=== PATIENT | female | born 1995 | race Caucasian/White ===

== ENCOUNTER 2018-09-20 03:07 | Inpatient (IN) | payer BC ==
[2018-09-20] MEDS ORDERED: Sodium Chloride 0.9% 10 ML Syringe FLUSH PRN (04:04)
[2018-09-20] MEDS ORDERED: Oxytocin/Lactated Ringers 10 UNIT/1,000 ML BAG IV SCH (04:15)
[2018-09-20] MEDS ORDERED: Lactated Ringers 1,000 ML IV SCH (04:15)
--- NOTE | 2018-09-20 04:33 | PCM.LDHP ---
L&D History of Present Illness - General Date of Service: 09/20/18 Admit Problem/Dx: Patient Status Order with Admit Dx/Problem 09/20/18 03:22 Patient Status [ADT] Routine Admission Diagnosis/Problem Admission Diagnosis/Problem Source of Information: Patient History Limitations: Reports: No Limitations - History of Present Illness Introduction:: 0.4-year-old FREDDY 10/05/18 at estimated gestational age 37 weeks 6 days presented to labor and delivery completely dilated. Spontaneous rupture membranes had occurred but time not exactly known but estimated by palpation at around midnight. Blood type B-positive antibody screen negative on 07/11/18. On 03/17/18 hemoglobin hematocrit 14.3 and 41.6. Platelets at that time 292,000. Rubella immune. RPR nonreactive, hepatitis B surface antigen nonreactive, HIV normal, Chlamydia and GC negative on 03/17/18. On 07/11/18 hemoglobin 12.0 platelets 277,001 hour OB glucose screen 1:15 antibody screen negative On 09/05/18 group B strep nondetected. Patient admitted for delivery. Timing/Duration: Reports: hour(s): Location, : Reports: Abdomen, Lower back, Pelvic Quality: Reports: Ache, Burning, Pressure Severity: Severe Pain Score: 9 Improves with: Reports: None Worsens with: Reports: None Associated Symptoms: Reports: N - Related Data Allergies/Adverse Reactions: Allergies Allergy/AdvReac Type Severity Reaction Status Date / Time benzonate Allergy Other Uncoded 09/20/18 04:37 formaldehyde Allergy Rash Uncoded 09/20/18 04:37 Home Medications: Home Meds Acetaminophen/Butalbital/Caff [Fioricet 325-50-40 MG] 1 tab PO 09/20/18 [History ] Albuterol Sulfate [Albuterol Sulfate Hfa] 8.5 gm IH 09/20/18 [History] Budesonide/Formoterol Fumarate [Symbicort 80-4.5 Mcg Inhaler] 1 puff IH [History] Dapsone [Aczone] 30 gm TP 09/20/18 [History] PNV95/Ferrous Fumarate/FA [ Tablet] 1 each PO 09/20/18 [History] Tretinoin Microspheres [Retin-A Micro] 20 gm TP 09/20/18 [History] Past Medical History HEENT History: Reports: Other (See Below) (Acne) Respiratory History: Reports: Asthma Gastrointestinal History: Reports: Other (See Below) (Indigestion) Social & Family History - Family History Cardiac: Reports: High Cholesterol (Maternal grandmother), Hypertension ( Maternal grandmother) Respiratory: Reports: Asthma (Father) GI: Reports: Hiatal Hernia (Father) Musculoskeletal: Reports: Arthritis (Father) Neurological: Reports: Other (See Below) (Stroke paternal grandfather) Psychiatric: Reports: Other (See Below) (Alcohol abuse maternal grandfather) Endocrine/Metabolic: Reports: Diabetes, type II (Paternal grandfather) Oncologic: Reports: Bladder (Paternal grandfather) H&P Review of Systems - Review of Systems: Review Of Systems: See Below General: Reports: No Symptoms HEENT: Reports: No Symptoms Pulmonary: Reports: No Symptoms Cardiovascular: Reports: No Symptoms Gastrointestinal: Reports: No Symptoms Genitourinary: Reports: No Symptoms Musculoskeletal: Reports: No Symptoms Skin: Reports: No Symptoms Psychiatric: Reports: No Symptoms Neurological: Reports: No Symptoms Hematologic/Lymphatic: Reports: No Symptoms Immunologic: Reports: No Symptoms L&D Exam - Exam Exam: See Below - OB Specific Fundal Height In cm: 37 Contraction Duration (sec): 60 Contraction Frequency (min): 3 Contraction Intensity: Strong Movement: Active Heart Tones: Present Heart Tones per Min: 140 Heart Rate (FHR) Variability: Moderate (6-25 bmp) Presentation: Vertex - Irene Score Irene Score Cervix Position: Anterior Irene Score Consistency: Soft Irene Score Effacement: >80% Irene Score Dilation: > 5 cm Irene Score 's Station: +1, +2 Irene Score Total: 13 - Exam General: Alert, Oriented HEENT: Conjunctiva Clear, Mucosa Moist & [place] Neck: Supple, Trachea Midline Lungs: Clear to Auscultation, Normal Respiratory Effort Cardiovascular: Regular Rate, Regular Rhythm Genitourinary: Normal external exam Extremities: Normal Inspection, Normal Range of Motion, Non-Tender, No Pedal Edema, Normal Capillary Refill Skin: Warm, Dry, Intact Psychiatric: Alert, Normal Affect, Normal Mood - Problem List (1) 37 weeks gestation of SNOMED Code(s): 89279438 ICD Code: Z3A.37 - 37 WEEKS GESTATION OF Status: Acute Current Visit: Yes Problem List Initiated/Reviewed/Updated: No Orders Last 24hrs: Active Orders 24 hr Category Date Time Status Patient Status [ADT] Routine ADT 09/20/18 03:22 Active Activity as Tolerated [RC] PFP Care 09/20/18 04:04 Active Communication Order [RC] ASDIRECTED Care 09/20/18 04:04 Active Heart Tones [RC] ASDIRECTED Care 09/20/18 04:04 Active Non Stress Test [RC] PER UNIT ROUTINE Care 09/20/18 03:22 Active Non Stress Test [RC] PER UNIT ROUTINE Care 09/20/18 04:04 Active Notify Provider [RC] PFP Care 09/20/18 04:04 Active Notify Provider [RC] PRN Care 09/20/18 04:04 Active Peripheral IV Care [RC] . DIRECTED Care 09/20/18 04:04 Active Urinary Catheter Assessment [RC] ASDIRECTED Care 09/20/18 04:04 Active Vital Signs [RC] PER UNIT ROUTINE Care 09/20/18 03:22 Active Vital Signs [RC] PER UNIT ROUTINE Care 09/20/18 04:04 Active Regular Diet [DIET] Diet 09/20/18 Breakfast Active CBC WITH AUTO DIFF [HEME] Stat Lab 09/20/18 04:15 Received RAPID PLASMA REAGIN,RPR [CHEM] Routine Lab 09/20/18 04:15 Received Lactated Ringers [Ringers, Lactated] 1,000 ml Med 09/20/18 04:15 Pending IV ASDIRECTED Oxytocin/Lactated Ringers [Pitocin in LR 10 Units/1,000 Med 09/20/18 04:15 Ordered ML] 10 unit in 1,000 ml IV .CONTINUOUS Sodium Chloride 0.9% [Saline Flush] Med 09/20/18 04:04 Ordered 10 ml FLUSH ASDIRECTED PRN Electronic Heart Tones Ext w TOCO [WOMSER] Oth 09/20/18 04:04 Ordered Routine Electronic Heart Tones Internal [WOMSER] Per Unit Oth 09/20/18 04:04 Ordered Routine Peripheral IV Insertion Adult [OM.PC] Routine Oth 09/20/18 04:04 Ordered Resuscitation Status Routine Resus Stat 09/20/18 04:04 Ordered Medication Orders Lactated Ringer's (Ringers, Lactated) 1,000 mls @ 100 mls/hr IV ASDIRECTED YOGI Oxytocin/Lactated Ringer's (Pitocin In Lr 10 Units/1,000 Ml) 10 unit in 1,000 mls @ 500 mls/hr IV .CONTINUOUS YOGI Sodium Chloride (Saline Flush) 10 ml FLUSH ASDIRECTED PRN PRN Reason: Keep Vein Open Assessment/Plan Comment:: Plan delivery
[2018-09-20] MEDS ORDERED: Lidocaine 1% 50 ML MDV ONE (04:44)
[2018-09-20] MEDS ORDERED: Nalbuphine 10 MG/1 ML Vial IVPUSH PRN (04:58)
--- NOTE | 2018-09-20 06:40 | PCM.SN ---
- Free Text/Narrative Note: At 0615 pushing at +2 station. Cat I FHR.
--- NOTE | 2018-09-20 08:26 | PCM.SN ---
- Free Text/Narrative Note: Stage I - Patient presented in active labor completely dilated. Stage II - of viable male, weight 7#10oz, APGARS 8/9 at 0729. Vacuum applied after about 3 hours of pushing at maternal request. bladder emptied prior to placement. Over 3 contractions with good maternal effort head descended to . Vacuum removed. Delivery occurred with one push. Body and shoulders followed without difficulty. Stage III - of intact placenta. 3vc. 3rd degree laceration repaired with 2-0 , 3-0 and 4-0 vicryl. EBL 300.
[2018-09-20] MEDS ORDERED: Lanolin 100% Cream 7 GM Tube TOP PRN (09:06)
[2018-09-20] MEDS ORDERED: Benzocaine/Menthol 20%-0.5% Spray 56 GM Canister TOP PRN (09:06)
[2018-09-20] MEDS: Witch Hazel Medicated Pads 40/Jar TOP PRN (10:06)
[2018-09-20] MEDS: Docusate Sodium 100 MG Cap PO PRN ×2 (10:07→21:05)
[2018-09-20] MEDS: Ibuprofen 600 MG Tab PO PRN ×2 (11:02→22:36)
--- NOTE | 2018-09-21 07:55 | PCM.PNPP ---
- General Info Date of Service: 09/21/18 Functional Status: Reports: Pain Controlled - Review of Systems General: Reports: No Symptoms HEENT: Reports: No Symptoms Pulmonary: Reports: No Symptoms Cardiovascular: Reports: No Symptoms Gastrointestinal: Reports: No Symptoms Genitourinary: Reports: No Symptoms Musculoskeletal: Reports: No Symptoms Skin: Reports: No Symptoms Neurological: Reports: No Symptoms Psychiatric: Reports: No Symptoms - General Info Date of Service: 09/21/18 - Patient Data Vital Signs - Most Recent: Last Vital Signs Temp 36.9 C 09/21/18 02:27 Pulse 94 09/21/18 02:27 Resp 14 09/21/18 02:27 BP 117/70 09/21/18 02:27 Pulse Ox 96 09/21/18 02:27 I&O - Last 24 Hours: Intake & Output 09/20/18 09/21/18 09/21/18 22:59 06:59 14:59 Intake Total 2180 Balance 2180 Lab Results - Last 24 Hours: Laboratory Results - last 24 hr 09/20/18 Range/Units 04:15 RPR Non-reactive (NONREACTIVE) Med Orders - Current: Current Medications Benzocaine/Menthol (Dermoplast Pain Relief [place]) 0 gm TOP ASDIRECTED PRN PRN Reason: Perineal Comfort Measure Last Admin: 09/20/18 10:07 Dose: 1 can Docusate Sodium (Colace) 100 mg PO BID PRN PRN Reason: Constipation Last Admin: 09/20/18 21:05 Dose: 100 mg Emollient Ointment (Lansinoh Hpa) 0 gm TOP ASDIRECTED PRN PRN Reason: Sore Nipples Last Admin: 09/20/18 22:38 Dose: 1 tube Ibuprofen (Motrin) 600 mg PO Q6H PRN PRN Reason: Mild pain or fever Last Admin: 09/20/18 22:36 Dose: 600 mg Witch Afshan (Tucks) 1 pad TOP ASDIRECTED PRN PRN Reason: Pain Last Admin: 09/20/18 10:06 Dose: 1 tub Discontinued Medications Lactated Ringer's (Ringers, Lactated) 1,000 mls @ 100 mls/hr IV ASDIRECTED YOGI Last Admin: 09/20/18 05:15 Dose: 100 mls/hr Oxytocin/Lactated Ringer's (Pitocin In Lr 10 Units/1,000 Ml) 10 unit in 1,000 mls @ 500 mls/hr IV .CONTINUOUS YOGI Last Admin: 09/20/18 07:31 Dose: 500 mls/hr Lidocaine HCl (Xylocaine 1%) Confirm Administered Dose 50 ml .ROUTE .STK-MED ONE Stop: 09/20/18 04:45 Last Admin: 09/20/18 08:06 Dose: 50 ml Nalbuphine HCl (Nubain) 10 mg IVPUSH Q2H PRN PRN Reason: Pain Last Admin: 09/20/18 05:09 Dose: 10 mg Sodium Chloride (Saline Flush) 10 ml FLUSH ASDIRECTED PRN PRN Reason: Keep Vein Open - Interaction Disposition, : [place] to Nursery Support Person: - Recovery Exam Fundal Tone: Firm Fundal Level: 1 Fingerbreadths Below Umbilicus Fundal Placement: Midline Lochia Amount: Small Lochia Color: Rubra/Red Perineum Description: Other (see below) Other Perinuem Description: 3rd deg laceration with repair Episiotomy/Laceration: Approximated Bladder Status: Voiding Urinary Elimination: Voided - Exam General: Alert, Oriented HEENT: Pupils Equal Neck: Supple Lungs: Clear to Auscultation, Normal Respiratory Effort Cardiovascular: Regular Rate, Regular Rhythm GI/Abdominal Exam: Normal Bowel Sounds, Soft, Non-Tender, No Organomegaly, No Distention, No Abnormal Bruit, No Mass, Pelvis Stable Extremities: Normal Inspection, Normal Range of Motion, Non-Tender, No Pedal Edema, Normal Capillary Refill Skin: Warm, Dry, Intact Wound/Incisions: Healing Well Neurological: No New Focal Deficit Psy/Mental Status: Alert, Normal Affect, Normal Mood - Problem List Review Problem List Initiated/Reviewed/Updated: Yes - My Orders Last 24 Hours: My Active Orders 09/20/18 09:06 Activity as Tolerated [RC] PER UNIT ROUTINE Vital Signs [RC] 09,15,21,03 Benzocaine/Menthol [Dermoplast Pain Relief [place]] See Dose Instructions TOP ASDIRECTED PRN Docusate Sodium [Colace] 100 mg PO BID PRN Ibuprofen [Motrin] 600 mg PO Q6H PRN Lanolin [Lansinoh HPA] See Dose Instructions TOP ASDIRECTED PRN Witch Afshan [Tucks] 1 pad TOP ASDIRECTED PRN Assess Lochia [WOMSER] Per Unit Routine Assess Uterine Involution [WOMSER] Per Unit Routine Breast Pump [WOMSER] Per Unit Routine Heat Therapy [OM.PC] PRN Medication Administration Instruction [OM.PC] Routine Perineal Care [OM.PC] Per Unit Routine Sitz Bath [OM.PC] Per Unit Routine 09/20/18 Lunch Regular Diet [DIET] 09/21/18 09:06 Heat Therapy [OM.PC] PRN - Assessment Assessment:: PPD 1 - Plan Plan:: Doing great. No issues. No complaints. Sore but otherwise minimal bleeding. Likely home tomorrow
[2018-09-21] MEDS: Ibuprofen 600 MG Tab PO PRN (08:03)
[2018-09-21] MEDS: Docusate Sodium 100 MG Cap PO PRN (21:32)
[2018-09-21] MEDS: Witch Hazel Medicated Pads 40/Jar TOP PRN (21:32)
[2018-09-22] MEDS ORDERED: Acetaminophen 325 MG Tab PO PRN (02:48)
[2018-09-22] MEDS: Ibuprofen 600 MG Tab PO PRN (02:50)
--- NOTE | 2018-09-22 08:09 | PCM.DCSUM1 ---
Discharge Summary - Hospital Course Diagnosis: Stroke: No - Discharge Data Discharge Date: 09/22/18 Discharge Disposition: Home, Self-Care 01 Condition: Good - Patient Instructions Diet: Usual Diet as Tolerated Activity: No Strenuous Activities Driving: May Drive Today Showering/Bathing: May Shower Notify Provider of: Fever, Increased Pain, Swelling and Redness, Drainage, Nausea and/or Vomiting - Discharge Plan *PRESCRIPTION DRUG MONITORING PROGRAM REVIEWED*: No *COPY OF PRESCRIPTION DRUG MONITORING REPORT IN PATIENT [place]: No Home Medications: Home Meds Acetaminophen/Butalbital/Caff [Fioricet 325-50-40 MG] 1 tab PO 09/20/18 [History ] Albuterol Sulfate [Albuterol Sulfate Hfa] 8.5 gm IH 09/20/18 [History] Budesonide/Formoterol Fumarate [Symbicort 80-4.5 Mcg Inhaler] 1 puff IH [History] Dapsone [Aczone] 30 gm TP 09/20/18 [History] PNV95/Ferrous Fumarate/FA [ Tablet] 1 each PO 09/20/18 [History] Tretinoin Microspheres [Retin-A Micro] 20 gm TP 09/20/18 [History] Patient Handouts: Home Care Instructions for Mom Referrals: Araseli Land MD [Physician] - (4 week) - Discharge Summary/Plan Comment DC Time >30 min.: No - General Info Date of Service: 09/22/18 Functional Status: Reports: Pain Controlled - Review of Systems General: Reports: No Symptoms HEENT: Reports: No Symptoms Pulmonary: Reports: No Symptoms Cardiovascular: Reports: No Symptoms Gastrointestinal: Reports: No Symptoms Genitourinary: Reports: No Symptoms Musculoskeletal: Reports: No Symptoms Skin: Reports: No Symptoms Neurological: Reports: No Symptoms Psychiatric: Reports: No Symptoms - Patient Data Vitals - Most Recent: Last Vital Signs Temp 36.9 C 09/22/18 07:48 Pulse 67 09/22/18 07:48 Resp 16 09/22/18 07:48 BP 113/76 09/22/18 07:48 Pulse Ox 98 09/22/18 07:48 Weight - Most Recent: 92.986 kg I&O - Last 24 hours: Intake & Output 09/21/18 09/22/18 09/22/18 22:59 06:59 14:59 Intake Total 660 Balance 660 Med Orders - Current: Current Medications Acetaminophen (Tylenol) 650 mg PO Q4H PRN PRN Reason: pain Last Admin: 09/22/18 02:55 Dose: 650 mg Benzocaine/Menthol (Dermoplast Pain Relief [place]) 0 gm TOP ASDIRECTED PRN PRN Reason: Perineal Comfort Measure Last Admin: 09/20/18 10:07 Dose: 1 can Docusate Sodium (Colace) 100 mg PO BID PRN PRN Reason: Constipation Last Admin: 09/21/18 21:32 Dose: 100 mg Emollient Ointment (Lansinoh Hpa) 0 gm TOP ASDIRECTED PRN PRN Reason: Sore Nipples Last Admin: 09/20/18 22:38 Dose: 1 tube Ibuprofen (Motrin) 600 mg PO Q6H PRN PRN Reason: Mild pain or fever Last Admin: 09/22/18 02:50 Dose: 600 mg Witch Afshan (Tucks) 1 pad TOP ASDIRECTED PRN PRN Reason: Pain Last Admin: 09/21/18 21:32 Dose: 1 tub Discontinued Medications Lactated Ringer's (Ringers, Lactated) 1,000 mls @ 100 mls/hr IV ASDIRECTED YOGI Last Admin: 09/20/18 05:15 Dose: 100 mls/hr Oxytocin/Lactated Ringer's (Pitocin In Lr 10 Units/1,000 Ml) 10 unit in 1,000 mls @ 500 mls/hr IV .CONTINUOUS YOGI Last Admin: 09/20/18 07:31 Dose: 500 mls/hr Lidocaine HCl (Xylocaine 1%) Confirm Administered Dose 50 ml .ROUTE .STK-MED ONE Stop: 09/20/18 04:45 Last Admin: 09/20/18 08:06 Dose: 50 ml Nalbuphine HCl (Nubain) 10 mg IVPUSH Q2H PRN PRN Reason: Pain Last Admin: 09/20/18 05:09 Dose: 10 mg Sodium Chloride (Saline Flush) 10 ml FLUSH ASDIRECTED PRN PRN Reason: Keep Vein Open - Exam General: Reports: Alert, Oriented HEENT: Reports: Pupils Equal, Pupils Reactive, EOMI, Mucous Membr. Moist/[place] Neck: Reports: Supple Lungs: Reports: Clear to Auscultation, Normal Respiratory Effort Cardiovascular: Reports: Regular Rate, Regular Rhythm GI/Abdominal Exam: Normal Bowel Sounds, Soft, Non-Tender, No Organomegaly, No Distention, No Abnormal Bruit, No Mass, Pelvis Stable Rectal (Female) Exam: Normal Exam, Normal Rectal Tone Back Exam: Reports: Normal Inspection, Full Range of Motion Extremities: Normal Inspection, Normal Range of Motion, Non-Tender, No Pedal Edema, Normal Capillary Refill Skin: Reports: Warm, Dry, Intact Wound/Incisions: Reports: Healing Well Neurological: Reports: No New Focal Deficit Psy/Mental Status: Reports: Alert, Normal Affect, Normal Mood
== END 2018-09-22 10:40 | disposition home or self-care (01) | DRG 542 ==
LOC: JD.OB 03:07 → JD.OBCHECK 03:07 → JD.OB 03:22 → OBSVTOIN 07:29 → JD.OB 07:30
PROVIDERS: ADMIT Obstetrics & Gynecology; ATTEND Obstetrics & Gynecology
PROC: 10D07Z6 Extraction of Products of Conception, Vacuum, Via Natural or Artificial Opening (ICD-10-PCS; principal; 2018-09-20)
PROC: 0DQR0ZZ Repair Anal Sphincter, Open Approach (ICD-10-PCS; 2018-09-20)
DX: O34.33 Maternal care for cervical incompetence, third trimester (principal); Z37.0 Single live birth; Z3A.37 37 weeks gestation of pregnancy; O70.20 Third degree perineal laceration during delivery, unspecified; Z88.8 Allergy status to other drugs, medicaments and biological substances
CPT/HCPCS: 36415; 59025; 59409; 85025; 86592; A9270-GY; J2001; J2300; J2590; J7120

== ENCOUNTER 2021-01-12 21:45 | Emergency (ER) | payer BC ==
[2021-01-12] MEDS ORDERED: Ondansetron 4 MG Tab.DIS PO ONE (22:58)
--- NOTE | 2021-01-12 23:06 | EDM.PDOC ---
ED HPI GENERAL MEDICAL PROBLEM - General Chief Complaint: Gastrointestinal Problem Stated Complaint: VOMITING/NAUSEA/DIARRHEA Time Seen by Provider: 01/12/21 22:45 Source of Information: Reports: Patient History Limitations: Reports: No Limitations - History of Present Illness INITIAL COMMENTS - FREE TEXT/NARRATIVE: Patient is a 26-year-old female presenting to the emergency room with a chief complaint of vomiting and syncope. Patient states she was doing strenuous work outside all day today and did not drink much. This evening, she developed vomiting and had several episodes of diarrhea. No blood in the vomit or diarrhea. She states she had 2 syncopal episodes which were not preceded by chest pain, palpitations. She did note she was feeling lightheaded at the time. She woke up on the ground. Denies any loss of bowel or bladder incontinence. No tongue biting. No prior history of syncope. Patient otherwise denies cough, sore throat, lower extremity swelling, , vaginal bleeding, recent travel. - Related Data Allergies Allergy/AdvReac Type Severity Reaction Status Date / Time benzonatate Allergy Other Verified 01/12/21 22:13 formaldehyde Allergy Rash Verified 01/12/21 22:13 Home Meds: Home Meds norgestimate-ethinyl estradioL [[place] 28 Tablet] 1 tab PO DAILY 01/12/21 [History] Ondansetron [Zofran ODT] 4 mg PO Q6H PRN #12 tab.dis 01/13/21 [Rx] Past Medical History - Past Health History Medical/Surgical History: Denies Medical/Surgical History HEENT History: Reports: Other (See Below) Respiratory History: Reports: Asthma Other Respiratory History: states she has an inhaler but is not sure the last time she used it. 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 - Infectious Disease History Infectious Disease History: Reports: Chicken Pox - Past Surgical History Other HEENT Surgeries/Procedures: wears glasses GI Surgical History: Reports: Appendectomy Social & Family History - Family History Family Medical History: No Pertinent Family History Cardiac: Reports: High Cholesterol, Hypertension Respiratory: Reports: Asthma GI: Reports: Hiatal Hernia Musculoskeletal: Reports: Arthritis Neurological: Reports: Other (See Below) Psychiatric: Reports: Other (See Below) Endocrine/Metabolic: Reports: Diabetes, type II Oncologic: Reports: Bladder - Tobacco Use Tobacco Use Status *Q: Never Tobacco User Second Hand Smoke Exposure: No - Caffeine Use Caffeine Use: Reports: Coffee - Recreational Drug Use Recreational Drug Use: No ED ROS GENERAL - Review of Systems Review Of Systems: See Below Free Text/Narrative/Comment: In addition to that documented in the HPI above, the additional ROS was obtained: Constitutional: Denies fevers or chills Eyes: Denies vision changes ENMT: Denies sore throat CV: Denies chest pain Resp: Denies SOB GI: Per HPI : Denies painful urination MSK: Denies recent trauma Skin: Denies new rashes Neuro: Denies new numbness or tingling or weakness Endocrine: Denies unexpected weight loss Heme: Denies bleeding disorders ED EXAM, GI/ABD - Physical Exam Exam: See Below Text/Narrative:: I have reviewed the triage vital signs Const: Well nourished, well developed, appears stated age Eyes: Pupils Equal and reactive to light bilaterally, no conjunctival injection HENT: No signs of trauma or swelling, Neck supple without meningismus CV: Regular Rate Rhythm, Warm, well-perfused extremities RESP: Unlabored respiratory effort GI: soft, non-tender, non-distended, no masses MSK: No gross deformities appreciated Skin: Warm, dry. No rashes Neuro: Alert, anchorman II-XII grossly intact. Sensation and motor function of extremities grossly intact. Psych: Appropriate mood and affect. #1 Interpretation EKG Date: 01/12/21 Time: 23:17 Rhythm: NSR Rate (Beats/Min): [address] [place]: Normal P-Wave: Present QRS: Normal ST-T: Normal QT: Normal Comparison: NA - No Prior EKG EKG Interpretation Comments: normal Course - Vital Signs Last Recorded V/S: Last Vital Signs Temp 37.5 C 01/12/21 22:12 Pulse 93 01/12/21 22:12 Resp 20 01/12/21 22:12 BP 111/54 L 01/12/21 22:12 Pulse Ox 100 01/12/21 22:12 - Orders/Labs/Meds Labs: Laboratory Tests 01/12/21 01/12/21 01/12/21 Range/Units 22:15 22:49 22:49 WBC 6.25 (3.98-10.04) K/mm3 RBC 5.16 (3.98-5.22) M/mm3 Hgb 15.9 H D (11.2-15.7) gm/dl Hct 47.0 H (34.1-44.9) % MCV 91.1 D (79.4-94.8) fl MCH 30.8 (25.6-32.2) pg MCHC 33.8 (32.2-35.5) g/dl RDW Std Deviation 42.3 (36.4-46.3) fL Plt Count 222 (182-369) K/mm3 MPV 9.6 (9.4-12.3) fl Neut % (Auto) 85.2 H (34.0-71.1) % Lymph % (Auto) 5.0 L (19.3-51.7) % [place] % (Auto) 9.1 (4.7-12.5) % Eos % (Auto) 0.3 L (0.7-5.8) Baso % (Auto) 0.2 (0.1-1.2) % Neut # (Auto) 5.33 (1.56-6.13) K/mm3 Lymph # (Auto) 0.31 L (1.18-3.74) K/mm3 [place] # (Auto) 0.57 H (0.24-0.36) K/mm3 Eos # (Auto) 0.02 L (0.04-0.36) K/mm3 Baso # (Auto) 0.01 (0.01-0.08) K/mm3 Sodium 139 (136-145) mEq/L Potassium 3.7 (3.5-5.1) mEq/L Chloride 104 (98-107) mEq/L Carbon Dioxide 27 (21-32) mEq/L Anion Gap 11.7 (5-15) BUN 16 (7-18) mg/dL Creatinine 1.0 (0.55-1.02) mg/dL Est Cr Clr Drug Dosing 69.90 mL/min Estimated GFR (MDRD) > 60 (>60) mL/min BUN/Creatinine Ratio 16.0 (14-18) Glucose 133 H (70-99) mg/dL Calcium 8.6 (8.5-10.1) mg/dL Total Bilirubin 0.9 (0.2-1.0) mg/dL AST 20 (15-37) U/L ALT 33 (14-59) U/L Alkaline Phosphatase 48 (46-116) U/L Total Protein 6.9 (6.4-8.2) g/dl Albumin 3.9 (3.4-5.0) g/dl Globulin 3.0 gm/dL Albumin/Globulin Ratio 1.3 (1-2) SARS-CoV-2 RNA (LACI) Negative (NEGATIVE) Meds: Medications Discontinued Medications Generic Name Dose Route Start Last Admin Trade Name Freq PRN Reason Stop Dose Admin Ondansetron HCl 8 mg 01/12/21 22:58 01/12/21 23:46 Ondansetron 4 Mg Tab.Dis PO 01/12/21 22:59 8 mg ONETIME ONE Administration Departure - Departure Time of Disposition: 00:06 Disposition: Home, Self-Care 01 Clinical Impression: Syncope, Dehydration - Discharge Information Prescriptions: Ondansetron [Zofran ODT] 4 mg PO Q6H PRN #12 tab.dis PRN Reason: Vomiting Instructions: Syncope Referrals: PCP,None [Primary Care Provider] - Forms: ED Department Discharge Sepsis Event Note (ED) - Focused Exam Vital Signs: Vital Signs Temp Pulse Resp BP Pulse Ox 01/12/21 22:12 37.5 C 93 20 111/54 L 100 - Assessment/Plan Assessment:: Patient 26-year-old female presented to the emergency room status post syncopal episode. Patient had no evidence of seizure activity based on her history or exam. Laboratory studies performed not demonstrate any severe anemia, electrolyte abnormality or other significant findings. EKG does not show any signs of ischemic changes or arrhythmias. History is suspicious for orthostatic given vomiting, diarrhea and strenuous activity. History or clinical evaluation is not suspicious for ruptured ectopic or pulmonary embolism. Patient demonstrates normal vital signs in the emergency room. Tolerating p.o. Was offered IV fluids but refused at this time. Return precautions were discussed as usual. Patient instructed to follow-up with primary care in the next 2 to 3 days. All questions were addressed and answered. Patient agrees with plan of care.
== END 2021-01-13 00:40 | disposition home or self-care (01) ==
LOC: JD.ED 21:45
DX: E86.0 Dehydration (principal); R55 Syncope and collapse; J45.909 Unspecified asthma, uncomplicated; Z79.899 Other long term (current) drug therapy; Z88.8 Allergy status to other drugs, medicaments and biological substances; Z20.822 Contact with and (suspected) exposure to COVID-19
CPT/HCPCS: 36415; 80053; 85025; 87635; 87804; 93005; 99284; A9270; U0002

== ENCOUNTER 2021-09-12 17:39 | Emergency (ER) | payer BC ==
[2021-09-12] MEDS ORDERED: Sodium Chloride 0.9% 10 ML Syringe FLUSH PRN (18:01)
[2021-09-12 18:59] LABS: ESTIMATED GFR > 60 mL/min (>60)
== END 2021-09-12 19:44 | disposition home or self-care (01) ==
LOC: JD.ED 17:39
DX: O99.891 Other specified diseases and conditions complicating pregnancy (principal); R00.2 Palpitations; R06.02 Shortness of breath; Z3A.32 32 weeks gestation of pregnancy; Z88.8 Allergy status to other drugs, medicaments and biological substances
CPT/HCPCS: 36415; 80053; 83735; 84443; 84484; 85025; 85379; 93005; 99285; J3490; 93010; 99284

== ENCOUNTER 2021-10-10 17:27 | Inpatient (IN) | payer BC ==
[~2021-10-10 17:27] MED LIST: Bupivacaine 0.25% 10 ML SDV ONE
[2021-10-10] MEDS ORDERED: Sodium Chloride 0.9% 10 ML Syringe FLUSH PRN (18:16)
[2021-10-10] MEDS ORDERED: Lidocaine 1% 50 ML MDV INJECT PRN (18:16)
[2021-10-10] MEDS ORDERED: Nalbuphine HCl 10 MG/ 1ML Amp IVPUSH PRN (18:16)
[2021-10-10] MEDS ORDERED: Oxytocin/Lactated Ringers 10 UNIT/1,000 ML BAG IV SCH ×2 (18:30→22:31)
[2021-10-10] MEDS ORDERED: fentaNYL 100 MCG/2 ML SDV EPIDUR PRN (19:05)
[2021-10-10] MEDS ORDERED: Bupivacaine/fentaNYL/NS 100 ML Bag EPIDUR PRN (19:05)
[2021-10-10] MEDS ORDERED: ePHEDrine 50 MG/ML SDV IVPUSH PRN (19:05)
[2021-10-10] MEDS ORDERED: diphenhydrAMINE 50 MG/ML SDV IVPUSH PRN (19:05)
[2021-10-10] MEDS: Lactated Ringers 1,000 ML IV SCH ×2 (19:07→19:41)
[2021-10-10] MEDS ORDERED: Sodium Chloride 0.9% 10 ML Syringe FLUSH SCH (21:00)
[2021-10-10] MEDS ORDERED: Misoprostol 100 MCG Tab RECTAL ONE (21:53)
[2021-10-10] MEDS: Misoprostol 200 MCG Tab ONE ×2 (21:57→22:13)
[2021-10-10] MEDS ORDERED: Methylergonovine 0.2 MG/1 ML Amp IM ONE (22:08)
[2021-10-10] MEDS ORDERED: Misoprostol 200 MCG Tab RECTAL ONE (22:14)
[2021-10-10] MEDS ORDERED: Benzocaine/Menthol 20%-0.5% Spray 78 GM Cannister TOP PRN (22:31)
[2021-10-10] MEDS ORDERED: Hydrocortisone Acetate 25 MG Supp RECTAL PRN (22:31)
[2021-10-10] MEDS ORDERED: Witch Hazel Medicated Pads 40/Jar TOP PRN (22:31)
[2021-10-10] MEDS ORDERED: Magnesium Hydroxide 400 MG/5 ML Susp 30 ML Cup PO PRN (22:31)
[2021-10-11] MEDS: Ibuprofen 600 MG Tab PO PRN ×2 (01:23→16:05)
[2021-10-11] MEDS: Nitrofurantoin Monohydrate/Macrocrystalline 100 MG Cap PO SCH ×3 (02:15→21:09)
[2021-10-11] MEDS: Acetaminophen 325 MG Tab PO PRN ×3 (06:41→19:26)
[2021-10-11] MEDS: Docusate Sodium 100 MG Cap PO PRN ×2 (08:06→19:27)
[2021-10-11] MEDS ORDERED: Prenatal Multivitamin with Calcium/Folic Acid/Iron Tab PO SCH (09:00)
== END 2021-10-11 21:19 | disposition home or self-care (01) | DRG 560 ==
LOC: JD.OBCHECK 17:27 → JD.OB 17:30 → JD.OBCHECK 18:30 → OBSVTOIN 22:26 → JD.OB 10-11 14:08
PROVIDERS: ADMIT Obstetrics & Gynecology; ATTEND Obstetrics & Gynecology
PROC: 10E0XZZ Delivery of Products of Conception, External Approach (ICD-10-PCS; principal; 2021-10-10)
PROC: 0KQM0ZZ Repair Perineum Muscle, Open Approach (ICD-10-PCS; 2021-10-10)
PROC: 3E0R3BZ Introduction of Anesthetic Agent into Spinal Canal, Percutaneous Approach (ICD-10-PCS; 2021-10-10)
PROC: 00HU33Z Insertion of Infusion Device into Spinal Canal, Percutaneous Approach (ICD-10-PCS; 2021-10-10)
PROC: 10907ZC Drainage of Amniotic Fluid, Therapeutic from Products of Conception, Via Natural or Artificial Opening (ICD-10-PCS; 2021-10-10)
DX: O60.14X0 Preterm labor third trimester with preterm delivery third trimester, not applicable or unspecified (principal); Z3A.36 36 weeks gestation of pregnancy; Z37.0 Single live birth; O75.3 Other infection during labor; N39.0 Urinary tract infection, site not specified; O69.81X0 Labor and delivery complicated by cord around neck, without compression, not applicable or unspecified; O70.1 Second degree perineal laceration during delivery; O99.52 Diseases of the respiratory system complicating childbirth; J45.909 Unspecified asthma, uncomplicated
CPT/HCPCS: 36415; 51701; 59025; 59409; 85025; 86592; A9270-GY; J2210; J2590; J3010; J3490; J7120

== ENCOUNTER 2024-03-29 03:51 | Emergency (ER) | payer OTHER ==
[2024-03-29] MEDS ORDERED: Sodium Chloride 0.9% 10 ML Syringe FLUSH PRN (04:13)
[2024-03-29] MEDS: Ketorolac 15 MG/ML SDV IVPUSH ONE (04:27)
[2024-03-29] MEDS: Sodium Chloride 0.9% 1,000 ML IV ONE (04:27)
[2024-03-29 04:32] LABS: BASOPHILS PERCENT AUTO 0.1 % (0.0-1.0); EOSINOPHILS ABSOLUTE AUTO 0.1 K/mm3 (0.0-0.4); EOSINOPHILS PERCENT AUTO 0.7 % (0.0-6.0); HEMATOCRIT 40.3 % (37.0-47.0); HEMOGLOBIN 14.2 gm/dl (12.0-16.0); IMMATURE GRAN ABSOLUTE AUTO 0.03 K/mm3 (0.00-0.05); IMMATURE GRAN PERCENT AUTO 0.3 % (0.0-0.4); LYMPHOCYTES ABSOLUTE AUTO 0.8 K/mm3 (1.0-4.8); LYMPHOCYTES PERCENT AUTO 7.4 % (24.0-44.0); MEAN CORPUSCULAR HEMOGLOBIN 30.7 pg (28.0-32.0); MEAN CORPUSCULAR HGB CONC 35.2 g/dl (32.0-36.0); MEAN CORPUSCULAR VOLUME 87.2 fl (83.0-99.0); MEAN PLATELET VOLUME 9.6 fl (9.4-12.3); MONOCYTES PERCENT AUTO 9.5 % (0.0-8.0); NEUTROPHILS ABSOLUTE AUTO 8.8 K/mm3 (1.8-7.7); PLATELET COUNT,PLT 208 K/mm3 (150-400); RED BLOOD CELL COUNT 4.62 M/mm3 (4.10-5.30); WHITE BLOOD CELL COUNT,WBC 10.72 K/mm3 (3.9-11.3)
[2024-03-29 04:42] LABS: APPEARANCE,URINE CLEAR (Clear); BILIRUBIN,URINE NEGATIVE (Negative); COLOR,URINE YELLOW (Yellow); GLUCOSE,URINE NEGATIVE (Negative); KETONES,URINE NEGATIVE (Negative); LEUKOCYTE ESTERASE,URINE 1+ (Negative); NITRITE,URINE POSITIVE (Negative); OCCULT BLOOD,URINE NEGATIVE (Negative); PH,URINE 6.5 (5.0-8.0); PROTEIN,URINE TRACE (Negative); UROBILINOGEN,URINE 0.2 (0.2-1.0)
[2024-03-29 04:55] LABS: A/G RATIO 0.9 (1-2); ALBUMIN 3.4 g/dl (3.4-5.0); ANION GAP 15.8 (5-15); BILIRUBIN TOTAL 0.5 mg/dL (0.2-1.0); CALCIUM 8.3 mg/dL (8.5-10.1); EST CRCL DRUG DOSING (CG) 68.05 mL/min; PROTEIN TOTAL,TP 7.1 g/dl (6.4-8.2)
[2024-03-29 05:00] LABS: LACTIC ACID 0.6 mmol/L (0.4-2.0)
[2024-03-29 05:01] LABS: POTASSIUM,K 3.8 mEq/L (3.5-5.1)
[2024-03-29 05:07] LABS: BACTERIA,URINE MODERATE /hpf (FEW); RBC,URINE 0-5 /hpf (0-5); SQUAMOUS EPITHELIAL CELLS,UR 0-5 /hpf (0-5)
[2024-03-29 05:08] LABS: MUCUS,URINE FEW /hpf (FEW)
[2024-03-29] MEDS ORDERED: cefTRIAXone 1 GM in Sodium Chloride 0.9% 50 ML IV ONE (05:21)
[2024-03-29] MEDS: Iopamidol 612 MG/ML 100 ML Bottle IVPUSH ONE (05:33)
[2024-03-29] MEDS: cefTRIAXone 1 GM Vial IVPUSH ONE (05:44)
== END 2024-03-29 07:36 | disposition home or self-care (01) ==
LOC: JD.ED 03:51
DX: N12 Tubulo-interstitial nephritis, not specified as acute or chronic (principal); E03.9 Hypothyroidism, unspecified; J45.909 Unspecified asthma, uncomplicated; Z79.899 Other long term (current) drug therapy; Z88.8 Allergy status to other drugs, medicaments and biological substances
CPT/HCPCS: 36415; 74177; 80053; 81001; 83605; 83690; 84703; 85025; 87040; 87086; 96374; 96375; 99284; J0696; J1885; J7030; Q9967; 87088; 87186